=== PATIENT | male | born 1995 | race Caucasian/White ===

== ENCOUNTER 2020-07-09 00:26 | Emergency (ER) | payer SELFPAY ==
[~2020-07-09 00:26] MED LIST: MOTRIN600 MG PO; PEPCID AC20 MG PO; TESSALON PERLE100 M1 PO; ZOFRAN4 MG PO; ZOFRAN8 MG PO
[2020-07-09] MEDS ORDERED: CEPHALEXIN500 M1 PO (01:50)
[2020-07-09] MEDS ORDERED: IBUPROFEN800 MG PO (01:50)
[2020-07-09] MEDS ORDERED: NORCO 5-325 TA1 EACH PO (01:50)
[2020-07-09] MEDS ORDERED: BACTRIM DS TAB1 EACH PO (01:50)
== END 2020-07-09 02:05 | disposition home or self-care (01) ==
LOC: FER 00:26
DX: L02.415 Cutaneous abscess of right lower limb (principal); L03.115 Cellulitis of right lower limb; F17.210 Nicotine dependence, cigarettes, uncomplicated